=== PATIENT | male | born 1980 | race Caucasian/White ===

== ENCOUNTER → 2016-06-02 | Outpatient (CLI) | payer OTHER ==
--- NOTE | 2016-06-02 17:59 | US ---
Left Lower Extremity Duplex Venous Doppler Interventional Consult Relevant History: The patient is a young 35-year-old male presenting with long-term history of worse kem left lower extremity varicosities since 2000. He didn't really quite pay much attention to it, since in the beginning they were not causing much symptoms, except in the last nine months, he starte d developing ulcers and cellulitis. He was subsequently referred to Dr. Anna Joyce, who then referr ed the patient to me for assessment. On physical exam, he has large anterior whalen and medial calf varicosities starting from the knee in t he left lower leg. There is mild ankle swelling. The discoloration and cellulitis is at the anterio r whalen, in several patches, down to the dorsum of the foot. I currently do not see an ulcer or a ski n break. The varicosities are very tense to touch, indicating increased hypertension. He denies any history o f clotting or DVT. He denies any bleeding episodes. Conservatively, the patient has tried elevation and walking and exercise. He was never told about co mpression stockings. Technique: Upright duplex venous Doppler as well as an extensive supine venous Doppler evaluation wa s performed by myself and the contact center specialist. This was followed by discussion with the patient. Findings: There is clear-cut superficial venous hypertension in that the great saphenous system show s 5 to 7 second reflux. At the groin, it refluxes 7 seconds. At the mid thigh, it refluxes 5 second s. It is 8 mm at the saphenofemoral junction and proximal segment, 5.8 mm at the mid thigh, and 5.6 mm at the knee. It exits the sheath at the knee, and contributes to large superficial varicose veins below the knee. There are three perforators identified in the calf. The first one is at the distal medial calf, measuring 3.6 mm, showing 3 second reflux. The second one is just above it, 2.4 mm in diameter, showing 2 mm second reflux. The third one is small at 1.5 mm, at the proximal medial calf, does not show significant reflux. There is a lateral ophthalmic medical technician at the distal calf, measuring 3.3 mm, with 2 second reflux. Supine and upright evaluation of the deep system definitively shows abnormality in the left deep vein , specifically the common femoral vein, relative to the right. This was evaluated in extensive detai l today. What we see on epstein-scale imaging is that there is not a significant caliber change under t he right iliac artery as far as the left common iliac vein is concerned. The vein does make a sharp bend where the caliber of it decreases somewhat, but that bend also correlates to where it drapes ove r the lumbar spine. However, with Valsalva, as long as the patient is Valsalvaing, the valve is refl uxing. There is a [id number] cine clip of epstein-scale and the color correlate of the common femoral valve. It is shown that with Valsalva, there is a small leak at the valve, while there is not a fra nk reversal of the valve. The reflux can measure up to 9 seconds. In upright position, with augmentation, very little reflux is seen in the deep system. Identical evaluation of the right-sided system shows no reflux or valve leakage whatsoever with eithe r augmentation or Valsalva. Pulsatile flow is seen in both common femoral veins, suggestive of high pressure at the right atrial level. Impression: 1. Extensive superficial venous hypertension in the great saphenous system. 2. 8-mm saphenofemoral junction, with 7 second reflux. 3. Extensive ropey varicose veins as a result in the left lower leg, with venous stasis cellulitis. 4. Leaky valve at the left common femoral vein, with significant reflux in the deep system on Valsal va, and questionable reflux on augmentation. Please see details above. 5. Decrease in caliber of the left common iliac vein as it courses under the right common iliac daysi ry, and drapes over the spine. However, ultrasound does not confirm a definitive high-grade pinch co nsistent with May-Thurner syndrome. Recommendation: 1. Laser ablation of the left great saphenous vein from knee to saphenofemoral junction. 2. Multivessel sclerotherapy. 3. Less than 10 stab phlebectomy to remove the large ropey varicose veins that are contiguously refl uxing, for prevention of clot formation and recurrence. 4. Left iliac venography, with pressure measurements, and possible stent placement, for evaluation a nd treatment of potential May-Thurner syndrome. Again, this is because of increased reflux significa ntly seen in the left common femoral vein while it is absent on the right. The patient may have a co mbo issue with early May-Thurner syndrome, that if treated early, can be extensively preventative for the future. The above are discussed in detail with the patient, who expressed understanding. Total [id number] consultation time was one hour. Crosscutting Measure: Patient's current list of medications including all known prescriptions, over- the-counters, herbals, and vitamin/mineral/dietary supplements are reviewed. Medications' name, dosa ge, frequency, and route of administration are confirmed. Patient is a nonsmoker.
== END ==
LOC: FIMAGING 07:55
PROVIDERS: ATTEND Surgery
DX: I87.322 Chronic venous hypertension (idiopathic) with inflammation of left lower extremity (principal)

== ENCOUNTER 2016-07-12 07:54 | Day surgery (SDC) | payer OTHER ==
[2016-07-12] MEDS ORDERED: fentaNYL 100 MCG/2 ML INJ ONE (08:08)
[2016-07-12] MEDS ORDERED: MIDAZOLAM 2 MG/2 ML VIAL ONE (08:08)
[2016-07-12] MEDS ORDERED: IOPAMIDOL (ISOVUE-300) 100 ML BTL IV ONE (09:49)
== END 2016-07-12 11:25 | disposition home health service (06) ==
LOC: FIMAGING 07:54
PROVIDERS: ATTEND Radiology Diagnostic Radiology
PROC: B51CYZZ Fluoroscopy of Left Lower Extremity Veins using Other Contrast (ICD-10-PCS; principal; 2016-07-12 09:59)
PROC: 06HN33Z Insertion of Infusion Device into Left Femoral Vein, Percutaneous Approach (ICD-10-PCS; principal; 2016-07-12 09:59)
DX: I83.892 Varicose veins of left lower extremity with other complications (principal)
CPT/HCPCS: 36012; 75820; C1769; C1894; J1644; J2250; J3010; Q9967

== ENCOUNTER 2016-07-13 07:58 | Day surgery (SDC) | payer OTHER ==
[2016-07-13] MEDS ORDERED: FLUMAZENIL 0.5 MG/5 ML MDV IVP ONE (08:10)
[2016-07-13] MEDS ORDERED: NALOXONE HCL 0.4 MG/ML INJ ONE (08:10)
[2016-07-13] MEDS ORDERED: MIDAZOLAM 2 MG/2 ML VIAL ONE ×4 (08:10→10:30)
[2016-07-13] MEDS ORDERED: fentaNYL 100 MCG/2 ML INJ ONE ×3 (08:11→10:30)
[2016-07-13] MEDS ORDERED: CEFAZOLIN 2 GM/DEXTROSE/100 ML BAG IV ONE ×2 (08:11→08:28)
[2016-07-13] MEDS ORDERED: ceFAZolin 2 GM/DEXTROSE 100 ML IV ONE (08:16)
[2016-07-13] MEDS ORDERED: ONDANSETRON 4 MG/2 ML VIAL IVP ONE (08:16)
[2016-07-13] MEDS ORDERED: NS 1,000 ML IV ONE (08:16)
[2016-07-13] MEDS ORDERED: LIDO/EPI 1% **for epidural** 30 ML SDV ONE (08:18)
[2016-07-13] MEDS ORDERED: SODIUM TETRADECYL SULFATE 60 MG/2 ML VIAL IV ONE (08:18)
[2016-07-13] MEDS ORDERED: ONDANSETRON 4 MG/2 ML VIAL ONE (08:28)
== END 2016-07-13 14:00 | disposition home health service (06) ==
LOC: FIMAGING 07:58
PROVIDERS: ATTEND Radiology Diagnostic Radiology
PROC: 3E033TZ Introduction of Destructive Agent into Peripheral Vein, Percutaneous Approach (ICD-10-PCS; principal; 2016-07-13 10:59)
PROC: 06BQ3ZZ Excision of Left Saphenous Vein, Percutaneous Approach (ICD-10-PCS; principal; 2016-07-13 10:59)
PROC: 065Q3ZZ Destruction of Left Saphenous Vein, Percutaneous Approach (ICD-10-PCS; principal; 2016-07-13 10:59)
DX: I83.892 Varicose veins of left lower extremity with other complications (principal)
CPT/HCPCS: J0690; J2250; J2310; J2405; J3010